=== PATIENT | male | born 1935 | race Caucasian/White ===

== ENCOUNTER 2024-01-18 13:29 | Inpatient (IN) | payer MEDICARE ==
[~2024-01-18] VITALS: Ht 165.1 cm; Wt 68.9 kg
[2024-01-18] MEDS ORDERED: IBUPROFEN 600 MG TABLET ONE (15:29)
[2024-01-18] MEDS: IBUPROFEN 600 MG TABLET PO ONE (15:31)
[2024-01-18 16:10] LABS: BASOPHILS # (AUTO) 0.1 K/uL (0.0-0.2); BASOPHILS % (AUTO) 0.7 % (0.0-2.0); EOSINOPHILS % (AUTO) 0.2 % (0.0-6.0); HEMATOCRIT 37 % (39-51); HEMOGLOBIN 12.4 g/dL (13.5-17.5); LYMPHOCYTES # (AUTO) 2.3 K/uL (0.8-4.8); LYMPHOCYTES % (AUTO) 25.5 % (20.0-44.0); MEAN CORPUSCULAR HEMOGLOBIN 32 PG (26.0-33.0); MEAN CORPUSCULAR HGB CONC 34 g/dl (31.0-36.0); MEAN CORPUSCULAR VOLUME 94 fL (80-96); MONOCYTES # (AUTO) 0.7 K/uL (0.1-1.30); MONOCYTES % (AUTO) 7.2 % (2.0-12.0); NEUTROPHILS # (AUTO) 6.1 K/uL (1.8-8.9); NEUTROPHILS % (AUTO) 66.4 % (43.0-81.0); PLATELET COUNT (AUTO) 135 K/uL (150-450); RED BLOOD CELL COUNT(AUTO) 3.91 MIL/uL (4.5-6.0); RED CELL DISTRIBUTION WIDTH 15.8 % (11.5-15.0); WHITE BLOOD COUNT (AUTO) 9.1 K/uL (4.3-11.0)
[2024-01-18 16:18] LABS: CALCIUM, SERUM 8.5 mg/dL (8.5-10.1); CARBON DIOXIDE 28 mmol/L (21-32); CHLORIDE 103 mmol/L (98-107); CREATININE 1.5 mg/dL (0.6-1.3); GLUCOSE 107 mg/dL (74-106); POTASSIUM 3.6 mmol/L (3.5-5.1); SODIUM SERUM 139 mmol/L (136-145); UREA NITROGEN, BLOOD 14 mg/dL (7-18)
[2024-01-18] MEDS ORDERED: MAGNESIUM HYDROXIDE 30 ML UDC PO PRN (17:30)
[2024-01-18] MEDS ORDERED: Z GUARD REMEDY 4 OZ OINT TP PRN (17:30)
[2024-01-18] MEDS ORDERED: ZOLPIDEM TARTRATE 5 MG TABLET PO PRN (17:30)
[2024-01-18] MEDS ORDERED: INSULIN REGULAR, HUMAN 100 UNIT/ML 3 ML VIAL SQ PRN (18:00)
[2024-01-18] MEDS ORDERED: DEXTROSE 50%-WATER 50 ML DISP.SYRIN IV PRN (18:00)
[2024-01-18] MEDS ORDERED: LIDOCAINE 5% (PATCH) 1 EA PATCH TP ONE (18:08)
[2024-01-18] MEDS: LIDOCAINE 5% (PATCH) 1 EA PATCH TP SCH (18:12)
[2024-01-18 20:00] VITALS: BP 127/62; TEMP 99; O2SAT 98
[2024-01-18] MEDS: MAG HYDROX/AL HYDROX/SIMETH 30 ML UDC PO PRN (22:28)
[2024-01-18] MEDS: BLOOD SUGAR DIAGNOSTIC 1 EACH STRIP IN SCH (22:29)
[2024-01-18] MEDS: ACETAMINOPHEN 325 MG TABLET PO PRN (22:51)
[2024-01-19] MEDS: IV NS 0.9% 1,000 ML IV PRN (04:36)
[2024-01-19] MEDS: HYDROCODONE/APAP 5/325MG TABLET PO PRN (05:18)
[2024-01-19 06:00] VITALS: BP 131/74; TEMP 98.7
[2024-01-19 06:00] LABS: ABG BASE EXCESS 0.5 mmol/L; ABG OXYGEN SATURATION 96.6 % (92.0-98.5); ABG PCO2 40.3 mmHg (35.0-45.0); ABG PH 7.412 (7.350-7.450); ABG PO2 88.6 mmHg (75.0-100.0); ABG TOTAL HEMOGLOBIN 12.1 G/dL (13.5-18.0); AaDO2 121.3 mmHg; COHb 0.3 % (0.5-1.5); MetHb 0.2 % (0.0-1.5); O2Hb 96.1 % (94.0-97.0); SITE, ABG Right Radial; VENT MODE, BG Nasal Cannula
[2024-01-19 07:25] LABS: BASOPHILS % (AUTO) 0.3 % (0.0-2.0); EOSINOPHILS # (AUTO) 0.1 K/uL (0.0-0.7); EOSINOPHILS % (AUTO) 0.9 % (0.0-6.0); HEMATOCRIT 33 % (39-51); HEMOGLOBIN 11.4 g/dL (13.5-17.5); LYMPHOCYTES # (AUTO) 1.4 K/uL (0.8-4.8); LYMPHOCYTES % (AUTO) 21.9 % (20.0-44.0); MEAN CORPUSCULAR HEMOGLOBIN 33 PG (26.0-33.0); MEAN CORPUSCULAR HGB CONC 35 g/dl (31.0-36.0); MEAN CORPUSCULAR VOLUME 94 fL (80-96); MONOCYTES # (AUTO) 0.6 K/uL (0.1-1.30); MONOCYTES % (AUTO) 8.9 % (2.0-12.0); NEUTROPHILS # (AUTO) 4.3 K/uL (1.8-8.9); PLATELET COUNT (AUTO) 99 K/uL (150-450); RED CELL DISTRIBUTION WIDTH 15.3 % (11.5-15.0); WHITE BLOOD COUNT (AUTO) 6.4 K/uL (4.3-11.0)
[2024-01-19 07:47] LABS: CALCIUM, SERUM 8.5 mg/dL (8.5-10.1); CREATININE 1.3 mg/dL (0.6-1.3); MAGNESIUM 1.4 mg/dL (1.8-2.4); PHOSPHORUS 3.1 mg/dL (2.5-4.9); POTASSIUM 4.3 mmol/L (3.5-5.1)
[2024-01-19 08:00] VITALS: BP 145/84; TEMP 98.3; O2SAT 98
[2024-01-19] MEDS: HYDROMORPHONE 1 MG/1 ML DISP.SYRIN IV ONE (09:37)
[2024-01-19] MEDS: MAGNESIUM OXIDE 400 MG TABLET PO ONE (10:17)
[2024-01-19 10:33] LABS: ANISOCYTOSIS 1+; BASOPHILS % (MANUAL) 0 % (0.0-2.0); EOSINOPHILS % (MANUAL) 1 % (0-4); LYMPHOCYTES % (MANUAL) 18 % (16-48); MONOCYTES % (MANUAL) 10 % (0-11.0); NEUTROPHILS % (MANUAL) 71 (42-76); PLATELET ESTIMATE DECREASED
[2024-01-19] MEDS ORDERED: ALFU10TA10 PO (10:34)
[2024-01-19] MEDS ORDERED: NATE60TA4 PO (10:34)
[2024-01-19] MEDS ORDERED: CHLO5CAP3 PO (10:34)
[2024-01-19] MEDS ORDERED: TADA5TAB13 PO (10:34)
[2024-01-19] MEDS ORDERED: NEBI2.5T5 PO (10:34)
[2024-01-19] MEDS ORDERED: FINA5TAB11 PO (10:34)
[2024-01-19] MEDS ORDERED: FURO-145 PO (10:34)
[2024-01-19] MEDS ORDERED: IMIP50TA7 PO (10:34)
[2024-01-19] MEDS ORDERED: METF-881 PO (10:34)
[2024-01-19] MEDS ORDERED: MYRBETRIQ PO (10:34)
[2024-01-19] MEDS ORDERED: ANAS1TAB50 PO (10:34)
[2024-01-19] MEDS: LEVOFLOXACIN 500 MG /D5W 100ML 500 MG in PREMIX 1 EA IV SCH (12:29)
[2024-01-19] MEDS: HYDROCODONE/APAP 10/325MG TABLET PO PRN (13:26)
[2024-01-19] MEDS: ONDANSETRON HCL/PF 4 MG/2 ML VIAL IVP PRN (15:43)
[2024-01-19 16:00] VITALS: BP 131/72; TEMP 98.3; O2SAT 98
[2024-01-19] MEDS ORDERED: INSULIN REGULAR, HUMAN 100 UNIT/ML 3 ML VIAL SQ PRN (16:00)
[2024-01-19] MEDS ORDERED: CHLORDIAZEPOXIDE HCL 5 MG CAPSULE PO PRN (16:00)
[2024-01-19] MEDS ORDERED: DEXTROSE 50%-WATER 50 ML DISP.SYRIN IV PRN (16:00)
[2024-01-19] MEDS ORDERED: ANASTROZOLE 1 MG TABLET PO SCH (16:00)
[2024-01-19] MEDS: NATEGLINIDE 60 MG TABLET PO SCH (17:41)
[2024-01-19] MEDS: BLOOD SUGAR DIAGNOSTIC 1 EACH STRIP IN SCH (17:43)
[2024-01-19 19:48] VITALS: BP 145/84; TEMP 98.3; O2SAT 98
[2024-01-19 19:56] VITALS: BP 145/84; TEMP 98.3; O2SAT 98
[2024-01-19 20:00] VITALS: BP 159/81; TEMP 98; O2SAT 99
[2024-01-20] MEDS ORDERED: MYRBETRIQ 50 MG PO SCH (09:00)
[2024-01-20] MEDS ORDERED: ALFUZOSIN HCL 10 MG PO SCH (09:00)
[2024-01-20] MEDS ORDERED: TADALAFIL 5 MG PO SCH (09:00)
[2024-01-20] MEDS ORDERED: FINASTERIDE (5 MG) 5 MG TABLET PO SCH (09:00)
[2024-01-20] MEDS ORDERED: IMIPRAMINE 25 MG TABLET PO SCH (09:00)
[2024-01-20] MEDS ORDERED: NEBIVOLOL HCL 2.5 MG PO SCH (09:00)
== END 2024-01-19 22:00 | disposition left against medical advice (07) | DRG 199 ==
LOC: ER 14:02 → MEDSG1 18:02
PROVIDERS: ADMIT Nurse Practitioner Acute Care; ATTEND Nurse Practitioner Acute Care
DX: S27.0XXA Traumatic pneumothorax, initial encounter (principal); N17.0 Acute kidney failure with tubular necrosis; S22.42XA Multiple fractures of ribs, left side, initial encounter for closed fracture; M48.56XA Collapsed vertebra, not elsewhere classified, lumbar region, initial encounter for fracture; J98.11 Atelectasis; W01.0XXA Fall on same level from slipping, tripping and stumbling without subsequent striking against object, initial encounter; Y92.009 Unspecified place in unspecified non-institutional (private) residence as the place of occurrence of the external cause; E11.22 Type 2 diabetes mellitus with diabetic chronic kidney disease; N18.9 Chronic kidney disease, unspecified; Z87.828 Personal history of other (healed) physical injury and trauma; I12.9 Hypertensive chronic kidney disease with stage 1 through stage 4 chronic kidney disease, or unspecified chronic kidney disease; Z91.81 History of falling; D69.6 Thrombocytopenia, unspecified; D64.9 Anemia, unspecified; E83.42 Hypomagnesemia; Z79.84 Long term (current) use of oral hypoglycemic drugs; Z79.899 Other long term (current) drug therapy; M89.8X9 Other specified disorders of bone, unspecified site; N40.0 Benign prostatic hyperplasia without lower urinary tract symptoms
CPT/HCPCS: 36415; 36600; 70450-TC; 71045-TC; 71250-TC; 72125-TC; 80048-TC; 82803-TC; 82962-TC; 83735-TC; 84100-TC; 85025-TC; A4216; G0378; J1170; J1815; J1956; J2405